=== PATIENT | female | born 1930 | race Caucasian/White ===

== ENCOUNTER 2017-03-11 15:04 | Inpatient (IN) | payer BC ==
[2017-03-11] MEDS ORDERED: ALBUTEROL SO4 0.083% IH SOL 2.5 MG/3 ML VIAL.NEB. NEB ONE ×3 (16:12→16:42)
--- NOTE | 2017-03-11 16:31 | PDOC ---
History of Present Illness - General History Source: Patient Exam Limitations: No Limitations - History of Present Illness Initial Comments: 03/11/17 16:41 The patient is a 86 year old female with a significant past medical history of esophageal CA (remission), CAD, HTN who presents to the ED, sent by PMD for admission, with complaints of cough and shortness of breath for 10 days. The patient reports a productive cough with yellow sputum that has not improved in symptoms. Patient reports taking azithromycin with no relief of present symptoms. Denies fevers or chills. Denies chest pain or palpitations. Denies dysuria or changes in urinary output. Denies any other symptoms. Social hx: The patient is a former smoker. PMD: Dr. Luna <Elissa Ralph - Last Filed: 03/11/17 18:05> - General History Source: Patient, Family Exam Limitations: No Limitations <Mejia Burt - Last Filed: 03/11/17 18:38> - General Chief Complaint: Shortness of Breath Stated Complaint: (PCP SENT) Time Seen by Provider: 03/11/17 16:04 Past History <Elissa Ralph - Last Filed: 03/11/17 18:05> - Past Medical History Cancer: Yes (esophagus, stomach) HTN: Yes Hypercholesterolemia: Yes - Surgical History Abdominal Surgery: Yes (stomach ulcer) - Psycho/Social/Smoking Cessation Hx Anxiety: No Suicidal Ideation: No Smoking History: Former smoker Have you smoked in the past 12 months: No Information on smoking cessation initiated: No Hx Alcohol Use: No Drug/Substance Use Hx: No Substance Use Type: None <Mejia Burt - Last Filed: 03/11/17 18:38> - Past Medical History Allergies/Adverse Reactions: Allergies Allergy/AdvReac Type Severity Reaction Status Date / Time codeine Allergy Verified 03/11/17 15:15 Home Medications: Ambulatory Orders Isosorbide Mononitrate [Imdur -] 30 mg PO DAILY 03/11/17 Omeprazole 40 mg PO DAILY 03/11/17 Ramipril [Altace] 5 mg PO DAILY 03/11/17 Simvastatin [Zocor -] 20 mg PO HS 03/11/17 Review of Systems - Review of Systems Able to Perform ROS?: Yes Comments:: 03/11/17 16:41 GENERAL/CONSTITUTIONAL: No fever or chills. No weakness. HEAD, EYES, EARS, NOSE AND THROAT: No change in vision. No ear pain or discharge. No sore throat. CARDIOVASCULAR: No chest pain or shortness of breath. RESPIRATORY: + cough, SOB. No wheezing, or hemoptysis. GASTROINTESTINAL: No nausea, vomiting, diarrhea or constipation. GENITOURINARY: No dysuria, frequency, or change in urination. MUSCULOSKELETAL: No joint or muscle swelling or pain. No neck or back pain. SKIN: No rash NEUROLOGIC: No headache, vertigo, loss of consciousness, or change in strength/ sensation. ENDOCRINE: No increased thirst. No abnormal weight change. HEMATOLOGIC/LYMPHATIC: No anemia, easy bleeding, or history of blood clots. ALLERGIC/IMMUNOLOGIC: No hives or skin allergy. All Other Systems: Reviewed and Negative <Elissa Ralph - Last Filed: 03/11/17 18:05> *Physical Exam - Vital Signs Last Vital Signs Temp Pulse Resp BP Pulse Ox 97.9 F 97 H 18 162/95 100 03/11/17 15:15 03/11/17 15:15 03/11/17 15:15 03/11/17 15:15 03/11/17 15:15 - Physical Exam Comments: 03/11/17 16:41 GENERAL: Awake, alert, and fully oriented, in no acute distress HEAD: No signs of trauma EYES: PERRLA, EOMI, sclera anicteric, conjunctiva clear ENT: Auricles normal inspection, hearing grossly normal, nares patent, oropharynx clear without exudates. Moist mucosa NECK: Normal ROM, supple, no lymphadenopathy, JVD, or masses LUNGS: + coughing frequently with diffuse expiratory wheezing. no crackles HEART: Regular rate and rhythm, normal S1 and S2, no murmurs, rubs or gallops ABDOMEN: Soft, nontender, normoactive bowel sounds. No guarding, no rebound. No masses EXTREMITIES: Normal range of motion, no edema. No clubbing or cyanosis. No cords, erythema, or tenderness NEUROLOGICAL: Normal speech SKIN: Warm, Dry, normal turgor, no rashes or lesions noted. <Elissa Ralph - Last Filed: 03/11/17 18:05> - Vital Signs Last Vital Signs Temp Pulse Resp BP Pulse Ox 97.9 F 97 H 18 162/95 100 03/11/17 15:15 03/11/17 15:15 03/11/17 15:15 03/11/17 15:15 03/11/17 15:15 <Mejia Burt - Last Filed: 03/11/17 18:38> Heart Score/ECG Review #1 ECG reviewed & interpreted by me at: 17:00 03/11/17 17:02 NSR 80, no std/gabrielle, normal axis, normal intervals, QTC 433 msec <Mejia Burt - Last Filed: 03/11/17 18:38> ED Treatment Course - LABORATORY CBC & Chemistry Diagram: 03/11/17 15:45 03/11/17 15:45 <Elissa Ralph - Last Filed: 03/11/17 18:05> - LABORATORY CBC & Chemistry Diagram: 03/11/17 15:45 03/11/17 15:45 - RADIOLOGY Radiology Studies Ordered: Category Date Time Status CHEST X-RAY PORTABLE* [RAD] Stat Radiology 03/11/17 16:11 Ordered <Mejia Burt - Last Filed: 03/11/17 18:38> Medical Decision Making - Medical Decision Making 03/11/17 18:[address] Fabian at 18:06 <Elissa Ralph - Last Filed: 03/11/17 18:05> - Medical Decision Making 03/11/17 16:29 A portion of this note was written by my scribe, under my supervision. Vital Signs Temp Pulse Resp BP Pulse Ox 97.9 F 97 H 18 162/95 100 03/11/17 15:15 03/11/17 15:15 03/11/17 15:15 03/11/17 15:15 03/11/17 15:15 86 year old female c/ hx of esophageal ca in remission, CAD, HTN, former smoker presents with cough and SOB x 10 days. The patient developed yellowish productive cough and has not improved in symptoms. Has been on azithromycin without improvement in symptoms. Pt had seen her PMD Dr. Luna who sent the patient to be admitted. Adult sepsis protocol initiated. R/o PNA, sepsis. Labs including cultures. Chest xray Admission. 03/11/17 18:11 CBC, BMP 03/11/17 15:45 03/11/17 15:45 CMP Sodium 138 mmol/L (136-145) 03/11/17 15:45 Potassium 4.0 mmol/L (3.5-5.1) 03/11/17 15:45 Chloride 100 mmol/L (98-107) 03/11/17 15:45 Carbon Dioxide 29 mmol/L (21-32) 03/11/17 15:45 Anion Gap 9 (8-16) 03/11/17 15:45 BUN 12 mg/dL (7-18) 03/11/17 15:45 Creatinine 0.7 mg/dL (0.55-1.02) 03/11/17 15:45 Creat Clearance w eGFR > 60 (>60) 03/11/17 15:45 Random Glucose 109 mg/dL (74-106) H 03/11/17 15:45 Lactic Acid 1.2 mmol/L (0.4-2.0) 03/11/17 15:45 Calcium 8.7 mg/dL (8.5-10.1) 03/11/17 15:45 Total Bilirubin 1.0 mg/dL (0.2-1.0) 03/11/17 15:45 AST 14 U/L (15-37) L 03/11/17 15:45 ALT 17 U/L (12-78) 03/11/17 15:45 Alkaline Phosphatase 105 U/L (45-117) 03/11/17 15:45 Creatine Kinase 87 IU/L (26-192) 03/11/17 15:45 Troponin I < 0.02 ng/ml (0.00-0.05) 03/11/17 15:45 B-Natriuretic Peptide 289.43 pg/ml (5-450) 03/11/17 15:45 Total Protein 7.2 g/dl (6.4-8.2) 03/11/17 15:45 Albumin 3.4 g/dl (3.4-5.0) 03/11/17 15:45 Chest xray reviewed, pending official radiology read. Hyperinflated with no obvious infiltrates. However, pt coughs uncontrollably. Will treat clinically as CAP. Ceftriaxone and azithromycin ordered. Case discussed with Dr. Flynn (hospitalist is covering Dr. Vann). Admit to med/surg admission. 03/11/17 18:[address] Luna. Agrees with my plan. Requests that I initiate 60 mg solumedrol q6h <Mejia Burt - Last Filed: 03/11/17 18:38> *DC/Admit/Observation/Transfer - Attestations Scribe Attestion: 03/11/17 16:42 Documentation prepared by Elissa Ralph, acting as medical staff specialist for Mejia Burt MD <Elissa Ralph - Last Filed: 03/11/17 18:05> - Discharge Dispostion Admit: Yes <Mejia Burt - Last Filed: 03/11/17 18:38> Diagnosis at time of Disposition: Pneumonia Qualifiers: Pneumonia type: due to unspecified organism Laterality: unspecified laterality Lung location: unspecified part of lung Qualified Code(s): J18.9 - Pneumonia, unspecified organism - Referrals Referrals: Barron Luna MD [Primary Care Provider] -
[2017-03-11 16:44] LABS: BASOPHIL 0.3 % (0-2.0); EOSINOPHIL 0.6 % (0-4.5); MCH 27.8 pg (25.7-33.7); MCHC 33.1 g/dl (32.0-36.0); MEAN CELL VOLUME 84.1 fl (80-96); MEAN PLT VOLUME 9.8 fl (7.5-11.1); NEUTROPHILS 76.5 % (42.8-82.8); PLATELET COUNT 264 K/MM3 (134-434); RDW 13.7 % (11.6-15.6); WHITE BLOOD COUNT 9.9 K/mm3 (4.0-10.0)
[2017-03-11 16:56] LABS: VENOUS PH 7.39 (7.32-7.42)
[2017-03-11 16:57] LABS: VENOUS BLOOD GAS HCO3 28.2 meq/L (19-25)
[2017-03-11 16:59] LABS: INR 1.19 (0.82-1.09); PROTHROMBIN TIME (PATIENT) 13.1 SEC (9.98-11.88)
[2017-03-11 17:01] LABS: ACTIVATED PTT 28.9 SECONDS (26.9-34.4)
[2017-03-11 17:09] LABS: ALBUMIN 3.4 g/dl (3.4-5.0); ANION GAP 9 (8-16); CALCIUM 8.7 mg/dL (8.5-10.1); CO2 29 mmol/L (21-32); CREATININE 0.7 mg/dL (0.55-1.02); GLUCOSE,RANDOM 109 mg/dL (74-106); SGOT/AST 14 U/L (15-37); SGPT/ALT 17 U/L (12-78)
[2017-03-11 17:14] LABS: ALK PHOS 105 U/L (45-117); CPK 87 IU/L (26-192); TOT PROT 7.2 g/dl (6.4-8.2); TROPONIN I < 0.02 ng/ml (0.00-0.05)
[2017-03-11 17:20] LABS: URINE APPEARANCE CLEAR; URINE BILIRUBIN 1+ (NEGATIVE); URINE BLOOD 3+ (NEGATIVE); URINE COLOR LT. YELLOW; URINE GLUCOSE (UA) NEGATIVE (NEGATIVE); URINE KETONE 1+ (NEGATIVE); URINE LEUK ESTERASE NEGATIVE (NEGATIVE); URINE NITRITE NEGATIVE (NEGATIVE); URINE PROTEIN TRACE (NEGATIVE); URINE UROBILINOGEN 0.2 mg/dL (0.2-1.0)
[2017-03-11] MEDS ORDERED: CEFTRIAXONE 1 GM in DEXTROSE 5%-WATER - 50 ML IVPB ONE (18:07)
[2017-03-11] MEDS ORDERED: AZITHROMYCIN IVPB 250 MG in DEXTROSE 5%-WATER - 250 ML IVPB ONE (18:07)
[2017-03-11] MEDS ORDERED: CEFTRIAXONE 50 ML ONE (18:20)
[2017-03-11 18:23] LABS: URINE BACTERIA FEW /hpf (NONE SEEN); URINE HYALINE CAST 1 /lpf; URINE MUCUS FEW; URINE RBC 21 /hpf (0-3); URINE WBC 5 /hpf (3-5)
[2017-03-11] MEDS ORDERED: methylPREDNISolone NA SUCC 40 MG/1 ML VIAL IVPB ONE (18:23)
[2017-03-11] MEDS ORDERED: methylPREDNISolone NA SUCC 125 MG/2 ML VIAL ONE (18:50)
--- NOTE | 2017-03-11 21:24 | HP ---
CHIEF COMPLAINT: cough PCP: [facility] HISTORY OF PRESENT ILLNESS: This is an 86 year old female with a past medical history of esophageal CA, CAD , HTN, glaucoma presented to the ED with cough and SOB x 10 days with productive yellow sputum. Was treated with po azithromycin x 3-4 days with no improvement. Pt also reports chest pain with inspiration. Denies abdominal pain , N/V/D. pt reports hot and cold sweats for the past week. ER course was notable for: (1) CXR with ? LLL infiltrate (2) tx with ceftriaxone and azithromycin IV (3) given solumedrol 60mg x 1 Recent Travel: pt denies PAST MEDICAL HISTORY: esophageal CA tx with chemo approx 10y ago HTN CAD glaucoma PAST SURGICAL HISTORY: surgery for stomach ulcer hysterectomy hemorrhoidectomy appendectomy Social History: Smoking: quit 20y ago, previous 1ppd smoker Alcohol: pt denies Drugs: pt denies Family History: mother age45, vaginal bleeding complications of "the change" father deased in his 70s, unknown brother brain aneurysm 6 other siblings all , unk ages and causes 1 sister alive with DM Allergies codeine Allergy (Verified 03/11/17 15:15) HOME MEDICATIONS: 3 Medication Instructions Recorded Isosorbide Mononitrate [Imdur -] 30 mg PO DAILY 03/11/17 Omeprazole 40 mg PO DAILY 03/11/17 Ramipril [Altace] 5 mg PO DAILY 03/11/17 Simvastatin [Zocor -] 20 mg PO HS 03/11/17 Travatan 1 drop OU HS REVIEW OF SYSTEMS CONSTITUTIONAL: Present: chills, diaphoresis Absent: fever, generalized weakness, malaise, loss of appetite, weight change HEENT: Absent: rhinorrhea, nasal congestion, throat pain, throat swelling, difficulty swallowing, mouth swelling, ear pain, eye pain, visual changes CARDIOVASCULAR: Present: chest pain Absent: syncope, palpitations, irregular heart rate, lightheadedness, peripheral edema RESPIRATORY: Present: cough, shortness of breath Absent: dyspnea with exertion, orthopnea, wheezing, stridor, hemoptysis GASTROINTESTINAL: Absent: abdominal pain, abdominal distension, nausea, vomiting, diarrhea, constipation, melena, hematochezia GENITOURINARY: Absent: dysuria, frequency, urgency, hesitancy, hematuria, flank pain, genital pain MUSCULOSKELETAL: Absent: myalgia, arthralgia, joint swelling, back pain, neck pain SKIN: Absent: rash, itching, pallor HEMATOLOGIC/IMMUNOLOGIC: Absent: easy bleeding, easy bruising, lymphadenopathy, frequent infections ENDOCRINE: Absent: unexplained weight gain, unexplained weight loss, heat intolerance, cold intolerance NEUROLOGIC: Absent: headache, focal weakness or paresthesias, dizziness, unsteady gait, seizure, mental status changes, bladder or bowel incontinence PSYCHIATRIC: Absent: anxiety, depression, suicidal or homicidal ideation, hallucinations. PHYSICAL EXAMINATION Vital Signs - 24 hr 3 03/11/17 03/11/17 03/11/17 15:15 18:05 20:00 Temperature 97.9 F 98.1 F 98.2 F Pulse Rate 97 H Pulse Rate [ 88 88 Apical] Respiratory 18 16 20 Rate Blood Pressure 162/95 Blood Pressure 118/61 156/64 [Right Arm] O2 Sat by Pulse 100 95 95 Oximetry (%) GENERAL: Awake, alert, and fully oriented, in no acute distress. HEAD: Normal with no signs of trauma. EYES: Pupils equal, round and reactive to light, extraocular movements intact, sclera anicteric, conjunctiva clear. No lid lag. EARS, NOSE, THROAT: Ears normal, nares patent, oropharynx clear without exudates. Moist mucous membranes. NECK: Normal range of motion, supple without lymphadenopathy, JVD, or masses. LUNGS: crackles LLL, diffuse expiratory wheezing and rhonchi all lung trevino, but worst LLL HEART: Regular rate and rhythm, normal S1 and S2 without murmur, rub or gallop. ABDOMEN: Soft, nontender, not distended, normoactive bowel sounds, no guarding, no rebound, no masses. No hepatomegaly or splenomegaly. MUSCULOSKELETAL: Normal range of motion at all joints. No bony deformities or tenderness. No CVA tenderness. UPPER EXTREMITIES: 2+ pulses, warm, well-perfused. No cyanosis. No clubbing. No peripheral edema. LOWER EXTREMITIES: 2+ pulses, warm, well-perfused. No calf tenderness. No peripheral edema. NEUROLOGICAL: Cranial nerves II-XII intact. Normal speech. Normal gait. PSYCHIATRIC: Cooperative. Good eye contact. Appropriate mood and affect. SKIN: Warm, dry, normal turgor, no rashes or lesions noted, normal capillary refill. Laboratory Results - last 24 hr 3 03/11/17 03/11/17 03/11/17 14:38 15:45 15:45 WBC 9.9 RBC 4.66 Hgb 13.0 Hct 39.2 MCV 84.1 MCH 27.8 MCHC 33.1 RDW 13.7 Plt Count 264 MPV 9.8 Neutrophils % 76.5 Lymphocytes % 14.5 Monocytes % 8.1 Eosinophils % 0.6 Basophils % 0.3 INR 1.19 H PTT (Actin FS) 28.9 VBG pH POC VBG pCO2 POC VBG pO2 Mixed VBG HCO3 Sodium Potassium Chloride Carbon Dioxide Anion Gap BUN Creatinine Creat Clearance w eGFR Random Glucose Lactic Acid Calcium Total Bilirubin AST ALT Alkaline Phosphatase Creatine Kinase Troponin I B-Natriuretic Peptide Total Protein Albumin Urine Color Lt. yellow Urine Appearance Clear Urine pH 6.0 Ur Specific Myra 1.020 Urine Protein Trace H Urine Glucose (UA) Negative Urine Ketones 1+ H Urine Blood 3+ H Urine Nitrite Negative Urine Bilirubin 1+ H Urine Urobilinogen 0.2 Ur Leukocyte Esterase Negative Urine RBC 21 Urine WBC 5 Ur Epithelial Cells Rare Urine Bacteria Few Hyaline Casts 1 Urine Mucus Few Blood Type Antibody Screen 3 03/11/17 03/11/17 03/11/17 15:45 15:45 15:45 WBC RBC Hgb Hct MCV MCH MCHC RDW Plt Count MPV Neutrophils % Lymphocytes % Monocytes % Eosinophils % Basophils % INR PTT (Actin FS) VBG pH POC VBG pCO2 POC VBG pO2 Mixed VBG HCO3 Sodium 138 Potassium 4.0 Chloride 100 Carbon Dioxide 29 Anion Gap 9 BUN 12 Creatinine 0.7 Creat Clearance w eGFR > 60 Random Glucose 109 H Lactic Acid 1.2 Calcium 8.7 Total Bilirubin 1.0 AST 14 L ALT 17 Alkaline Phosphatase 105 Creatine Kinase 87 Troponin I < 0.02 B-Natriuretic Peptide Total Protein 7.2 Albumin 3.4 Urine Color Urine Appearance Urine pH Ur Specific Myra Urine Protein Urine Glucose (UA) Urine Ketones Urine Blood Urine Nitrite Urine Bilirubin Urine Urobilinogen Ur Leukocyte Esterase Urine RBC Urine WBC Ur Epithelial Cells Urine Bacteria Hyaline Casts Urine Mucus Blood Type A POSITIVE Antibody Screen Negative 3 03/11/17 03/11/17 15:45 16:50 WBC RBC Hgb Hct MCV MCH MCHC RDW Plt Count MPV Neutrophils % Lymphocytes % Monocytes % Eosinophils % Basophils % INR PTT (Actin FS) VBG pH 7.39 POC VBG pCO2 48.0 POC VBG pO2 38.7 Mixed VBG HCO3 28.2 H Sodium Potassium Chloride Carbon Dioxide Anion Gap BUN Creatinine Creat Clearance w eGFR Random Glucose Lactic Acid Calcium Total Bilirubin AST ALT Alkaline Phosphatase Creatine Kinase Troponin I B-Natriuretic Peptide 289.43 Total Protein Albumin Urine Color Urine Appearance Urine pH Ur Specific Myra Urine Protein Urine Glucose (UA) Urine Ketones Urine Blood Urine Nitrite Urine Bilirubin Urine Urobilinogen Ur Leukocyte Esterase Urine RBC Urine WBC Ur Epithelial Cells Urine Bacteria Hyaline Casts Urine Mucus Blood Type Antibody Screen CXR- possible LLL infiltrate with haziness ECG-NSR, rate 80, QTC 433, no acute ST/T wave changes ASSESSMENT/PLAN: 86yF with PMH HTN, CAD, esophageal CA, glaucoma presented with cough, SOB x 10 days. She is being admitted for furthr treatment and evaluation. Community Acquired Pneumonia - ceftriaxone and azithromycin IVPB daily - solumedrol 40mg Q6h for wheezing - duoneb QID for wheezing with albuterol q4h prn - chest pain likely due to same, troponin negative HTN/CAD - cont home meds, home zocor changed to formulary lipitor GERD/h/o PUD - home omeprazole changed to formulary protonix Glaucoma - home travatan changed to xalatan DVT PPX - cont heparin 5000u SC BID FEN - defer IVF, pt tolerating po - BMP in AM - low sodium diet as tolerated Dispo: Pt currently requires inpatient management of her emergent condition. Visit type - Emergency Visit Emergency Visit: Yes ED Registration Date: 03/11/17 Care time: The patient presented to the Emergency Department on the above date and was hospitalized for further evaluation of their emergent condition. - New Patient This patient is new to me today: Yes Date on this admission: 03/12/17 - Critical Care Critical Care patient: No
[2017-03-11] MEDS ORDERED: ALBUTEROL SO4 0.083% IH SOL 2.5 MG/3 ML VIAL.NEB. NEB PRN (21:39)
[2017-03-11] MEDS: ATORVASTATIN CA 10 MG TABLET (FP) PO SCH (22:10)
[2017-03-11] MEDS: HEPARIN NA (PORCINE) 5,000 UNITS/ML 1ML VIAL SQ SCH (22:10)
[2017-03-11] MEDS: LATANOPROST 0.005% OPHTH SOLN 2.5ML BOTTLE OU SCH (22:11)
[2017-03-11] MEDS: ALBUTEROL SO4 2.5/IPRATROPIUM 0.5 INH SOL 3 ML VIAL.NEB. NEB SCH (23:21)
[2017-03-11 23:28] VITALS: BMI 25.2
[2017-03-12] MEDS: methylPREDNISolone NA SUCC 40 MG/1 ML VIAL IVPB SCH ×4 (02:16→20:28)
[2017-03-12] MEDS: ALBUTEROL SO4 2.5/IPRATROPIUM 0.5 INH SOL 3 ML VIAL.NEB. NEB SCH ×4 (05:42→23:50)
[2017-03-12 08:19] LABS: BASOPHIL 0.1 % (0-2.0); MCH 27.6 pg (25.7-33.7); MCHC 32.9 g/dl (32.0-36.0); MEAN CELL VOLUME 83.8 fl (80-96); MEAN PLT VOLUME 9.5 fl (7.5-11.1); PLATELET COUNT 240 K/MM3 (134-434); RDW 13.7 % (11.6-15.6); WHITE BLOOD COUNT 6.1 K/mm3 (4.0-10.0)
[2017-03-12] MEDS ORDERED: DEXTROSE 5%-WATER - 50 ML IVPB ONE (09:08)
[2017-03-12] MEDS ORDERED: cefTRIAXone SODIUM 1 GM VIAL ONE (09:08)
[2017-03-12] MEDS ORDERED: PT OWN MED DRAWER 7, Y5N ONE ×2 (09:08→21:13)
[2017-03-12] MEDS: RAMIPRIL 5 MG CAPSULE (FP) PO SCH (09:14)
[2017-03-12] MEDS: CEFTRIAXONE 1 GM in DEXTROSE 5%-WATER - 50 ML IVPB SCH (09:15)
[2017-03-12] MEDS: ISOSORBIDE MONONITRATE 30 MG TAB.SR.24H (FP) PO SCH (09:15)
[2017-03-12] MEDS: PANTOPRAZOLE 40 MG TABLET (FP) PO SCH (09:15)
[2017-03-12] MEDS: AZITHROMYCIN IVPB 500 MG/250 ML D5W PRE-DOCKED IVPB SCH (09:17)
[2017-03-12] MEDS: HEPARIN NA (PORCINE) 5,000 UNITS/ML 1ML VIAL SQ SCH ×2 (09:18→21:07)
[2017-03-12] MEDS ORDERED: AZITHROMYCIN IVPB 500 MG in DEXTROSE 5%-WATER - 250 ML IVPB SCH (10:00)
--- NOTE | 2017-03-12 10:24 | EKG ---
Test Reason : Blood Pressure : / mmHG Vent. Rate : 080 BPM Atrial Rate : 080 BPM P-R Int : 184 ms QRS Dur : 088 ms QT Int : 376 ms P-R-T Axes : 087 029 057 degrees QTc Int : 433 ms NORMAL SINUS RHYTHM NORMAL ECG NO PREVIOUS ECGS AVAILABLE Confirmed by NOLBERTO MONTGOMERY MD ([id number]) on 03/12/2017 10:24:35 AM Referred By: Confirmed By:NOLBERTO MONTGOMERY MD
[2017-03-12 11:38] LABS: ANION GAP 9 (8-16); CALCIUM 9.2 mg/dL (8.5-10.1); CO2 29 mmol/L (21-32); CREATININE 0.6 mg/dL (0.55-1.02); GLUCOSE,RANDOM 186 mg/dL (74-106); MAGNESIUM 2.2 mg/dL (1.8-2.4); PHOSPHOROUS 2.9 mg/dL (2.5-4.9)
--- NOTE | 2017-03-12 13:55 | PN ---
Progress Note, Physician Chief Complaint: Ms Farr says she is feeling better today. She still has coughing (non- productive) and shortness of breath but it is improved. No cp or n/v. - Current Medication List Current Medications: Active Medications Albuterol Sulfate (Ventolin 0.083% Nebulizer Soln -) 1 amp NEB Q4H PRN PRN Reason: SHORT OF BREATH/WHEEZING Albuterol/Ipratropium (Duoneb -) 1 amp NEB QIDR [facility] Last Admin: 03/12/17 11:51 Dose: 1 amp Atorvastatin Calcium (Lipitor -) 10 mg PO HS [facility] Last Admin: 03/11/17 22:10 Dose: 10 mg Azithromycin (Zithromax 500mg Ivpb (Pre-Docked)) 500 mg IVPB DAILY [facility] Last Admin: 03/12/17 09:17 Dose: 500 mg Heparin Sodium (Porcine) (Heparin -) 5,000 unit SQ BID [facility] Last Admin: 03/12/17 09:18 Dose: 5,000 unit Ceftriaxone Sodium 1 gm/ (Dextrose) 50 mls @ 100 mls/hr IVPB DAILY [facility] Last Admin: 03/12/17 09:15 Dose: 100 mls/hr Isosorbide Mononitrate (Imdur -) 30 mg PO DAILY [facility] Last Admin: 03/12/17 09:15 Dose: 30 mg Latanoprost (Xalatan 0.005% Eye Drops -) 1 drop OU HS [facility] Last Admin: 03/11/17 22:11 Dose: 1 drop Methylprednisolone Sodium Succinate (Solu-Medrol -) 40 mg IVPB Q6H-IV [facility] Last Admin: 03/12/17 08:39 Dose: 40 mg Pantoprazole Sodium (Protonix -) 40 mg PO DAILY [facility] Last Admin: 03/12/17 09:15 Dose: 40 mg Ramipril (Altace -) 5 mg PO DAILY [facility] Last Admin: 03/12/17 09:14 Dose: 5 mg - Objective Vital Signs: Vital Signs Temperature 35.9 C L 03/12/17 08:00 Pulse Rate 82 03/12/17 11:15 Respiratory Rate 22 03/12/17 08:00 Blood Pressure 146/74 03/12/17 11:15 O2 Sat by Pulse Oximetry (%) 96 03/12/17 09:00 Constitutional: Yes: Well Nourished, No Distress, Calm Cardiovascular: Yes: Regular Rate and Rhythm. No: Gallop, Murmur, Rub Respiratory: Yes: Regular, CTA Bilaterally. No: Rales, Rhonchi, Wheezes Gastrointestinal: Yes: Normal Bowel Sounds, Soft. No: Distention, Tenderness Extremities: Yes: WNL Edema: No Labs: CBC, BMP 03/12/17 07:51 03/12/17 07:51 INR, PTT INR 1.19 (0.82-1.09) H 03/11/17 15:45 Problem List - Problems (1) Pneumonia Assessment/Plan: -patient feeling improved -continue rocephin and zithromax -monitor Code(s): J18.9 - PNEUMONIA, UNSPECIFIED ORGANISM Qualifiers: Pneumonia type: due to unspecified organism Laterality: unspecified laterality Lung location: unspecified part of lung Qualified Code(s): J18.9 - Pneumonia, unspecified organism (2) COPD (chronic obstructive pulmonary disease) Assessment/Plan: -secondary to pneumonia -continue steroids currently -may be able to decrease or stop tomorrow -continue bronchodilators Code(s): J44.9 - CHRONIC OBSTRUCTIVE PULMONARY DISEASE, UNSPECIFIED Qualifiers : COPD type: COPD with acute exacerbation Qualified Code(s): J44.1 - Chronic obstructive pulmonary disease with (acute) exacerbation (3) HTN (hypertension) Assessment/Plan: -continue altace -steroids may cause increase in blood pressure Code(s): I10 - ESSENTIAL (PRIMARY) HYPERTENSION (4) HLD (hyperlipidemia) Assessment/Plan: -continue statin Code(s): E78.5 - HYPERLIPIDEMIA, UNSPECIFIED (5) CAD (coronary artery disease) Assessment/Plan: -quiescent -continue home regimen Code(s): I25.10 - ATHSCL HEART DISEASE OF [place] CORONARY ARTERY W/O ANG PCTRS
[2017-03-12] MEDS: ATORVASTATIN CA 10 MG TABLET (FP) PO SCH (21:07)
[2017-03-12] MEDS: LATANOPROST 0.005% OPHTH SOLN 2.5ML BOTTLE OU SCH (21:18)
[2017-03-13] MEDS: methylPREDNISolone NA SUCC 40 MG/1 ML VIAL IVPB SCH ×4 (02:19→21:27)
[2017-03-13] MEDS: ALBUTEROL SO4 2.5/IPRATROPIUM 0.5 INH SOL 3 ML VIAL.NEB. NEB SCH ×4 (05:59→23:10)
[2017-03-13 07:29] LABS: MCHC 33.1 g/dl (32.0-36.0); MEAN CELL VOLUME 84.4 fl (80-96); MEAN PLT VOLUME 9.1 fl (7.5-11.1); PLATELET COUNT 317 K/MM3 (134-434); RDW 13.4 % (11.6-15.6)
[2017-03-13 07:50] LABS: ANION GAP 9 (8-16); CALCIUM 9.3 mg/dL (8.5-10.1); CO2 30 mmol/L (21-32); CREATININE 0.6 mg/dL (0.55-1.02); GLUCOSE,RANDOM 159 mg/dL (74-106); MAGNESIUM 2.5 mg/dL (1.8-2.4); PHOSPHOROUS 3.5 mg/dL (2.5-4.9)
[2017-03-13] MEDS ORDERED: PT OWN MED DRAWER 7, Y5N ONE ×3 (10:50→21:31)
[2017-03-13] MEDS ORDERED: cefTRIAXone SODIUM 1 GM VIAL ONE (10:51)
[2017-03-13] MEDS ORDERED: DEXTROSE 5%-WATER - 50 ML IVPB ONE (10:51)
[2017-03-13] MEDS: RAMIPRIL 5 MG CAPSULE (FP) PO SCH (10:53)
[2017-03-13] MEDS: PANTOPRAZOLE 40 MG TABLET (FP) PO SCH (10:53)
[2017-03-13] MEDS: ISOSORBIDE MONONITRATE 30 MG TAB.SR.24H (FP) PO SCH (10:53)
[2017-03-13] MEDS: CEFTRIAXONE 1 GM in DEXTROSE 5%-WATER - 50 ML IVPB SCH (10:54)
[2017-03-13] MEDS: AZITHROMYCIN IVPB 500 MG/250 ML D5W PRE-DOCKED IVPB SCH (10:55)
[2017-03-13] MEDS: HEPARIN NA (PORCINE) 5,000 UNITS/ML 1ML VIAL SQ SCH ×2 (10:56→21:27)
[2017-03-13 12:47] LABS: TOTAL CELLS COUNTED 100
--- NOTE | 2017-03-13 13:20 | PN ---
Physical Exam: SUBJECTIVE: Patient seen and examined with no new overnight events. OBJECTIVE: Vital Signs Period Temp Pulse Resp BP Sys/Denny Pulse Ox Last 24 Hr 97.6 F-97.9 F 82-97 20-20 133-139/61-71 96-98 GENERAL: The patient is awake, in no acute distress. HEAD: Normal with no signs of trauma. LUNGS: Breath sounds equal, clear bilaterally HEART: Regular rate and rhythm, S1, S2 without murmur, rub or gallop. ABDOMEN: Soft, nontender, nondistended, normoactive bowel sounds, EXTREMITIES: 2+ pulses, warm, well-perfused, no edema. NEUROLOGICAL: Cranial nerves II through XII grossly intact. SKIN: Warm, dry, normal turgor, no rashes or lesions noted Laboratory Results - last 24 hr 03/13/17 03/13/17 06:30 06:30 WBC 19.0 H D RBC 4.54 Hgb 12.7 Hct 38.3 MCV 84.4 MCH 28.0 MCHC 33.1 RDW 13.4 Plt Count 317 D MPV 9.1 Neutrophils % Y Neutrophils % (Manual) 85 H Band Neuts % (Manual) 12 H Lymphocytes % Y Lymphocytes % (Manual) 2 L Monocytes % (Manual) 1 L Sodium 140 Potassium 4.9 D Chloride 101 Carbon Dioxide 30 Anion Gap 9 BUN 18 D Creatinine 0.6 Random Glucose 159 H Calcium 9.3 Phosphorus 3.5 D Magnesium 2.5 H Active Medications Generic Name Dose Route Start Last Admin Trade Name Freq PRN Reason Stop Dose Admin Albuterol Sulfate 1 amp 03/11/17 21:39 Ventolin 0.083% Nebulizer Soln - NEB Q4H PRN SHORT OF BREATH/WHEEZING Albuterol/Ipratropium 1 amp 03/12/17 00:00 03/13/17 11:45 Duoneb - NEB 1 amp QIDR AGUEDA Administration Atorvastatin Calcium 10 mg 03/11/17 22:00 03/12/17 21:07 Lipitor - PO 10 mg HS AGUEDA Administration Azithromycin 500 mg 03/12/17 10:00 03/13/17 10:55 Zithromax 500mg Ivpb (Pre-Docked) IVPB 500 mg DAILY AGUEDA Administration Heparin Sodium (Porcine) 5,000 unit 03/11/17 22:00 03/13/17 10:56 Heparin - SQ 5,000 unit BID AGUEDA Administration Ceftriaxone Sodium 1 gm/ 50 mls @ 100 mls/hr 03/12/17 10:00 03/13/17 10:54 Dextrose IVPB 100 mls/hr DAILY AGUEDA Administration Isosorbide Mononitrate 30 mg 03/12/17 10:00 03/13/17 10:53 Imdur - PO 30 mg DAILY AGUEDA Administration Latanoprost 1 drop 03/11/17 22:00 03/12/17 21:18 Xalatan 0.005% Eye Drops - OU 1 drop HS AGUEDA Administration Methylprednisolone Sodium Succinate 40 mg 03/12/17 03:00 03/13/17 09:10 Solu-Medrol - IVPB 40 mg Q6H-IV AGUEDA Administration Pantoprazole Sodium 40 mg 03/12/17 10:00 03/13/17 10:53 Protonix - PO 40 mg DAILY AGUEDA Administration Ramipril 5 mg 03/12/17 10:00 03/13/17 10:53 Altace - PO 5 mg DAILY AGUEDA Administration ASSESSMENT/PLAN: This 86 year female with presentation of PNA with showing improvement. Problem List - Problems (1) Pneumonia Assessment/Plan: -patient feeling improved -continue rocephin and zithromax -monitor Code(s): J18.9 - PNEUMONIA, UNSPECIFIED ORGANISM Qualifiers: Pneumonia type: due to unspecified organism Laterality: unspecified laterality Lung location: unspecified part of lung Qualified Code(s): J18.9 - Pneumonia, unspecified organism (2) COPD (chronic obstructive pulmonary disease) Assessment/Plan: -secondary to pneumonia -continue steroids currently -continue bronchodilators -appreciate Pulmonary consult Code(s): J44.9 - CHRONIC OBSTRUCTIVE PULMONARY DISEASE, UNSPECIFIED Qualifiers : COPD type: COPD with acute exacerbation Qualified Code(s): J44.1 - Chronic obstructive pulmonary disease with (acute) exacerbation (3) HTN (hypertension) Assessment/Plan: -continue altace -steroids may cause increase in blood pressure Code(s): I10 - ESSENTIAL (PRIMARY) HYPERTENSION (4) HLD (hyperlipidemia) Assessment/Plan: -continue statin Code(s): E78.5 - HYPERLIPIDEMIA, UNSPECIFIED (5) CAD (coronary artery disease) Assessment/Plan: -quiescent -continue home regimen Code(s): I25.10 - ATHSCL HEART DISEASE OF [place] CORONARY ARTERY W/O ANG PCTRS Problem List - Problems (1) COPD (chronic obstructive pulmonary disease) Code(s): J44.9 - CHRONIC OBSTRUCTIVE PULMONARY DISEASE, UNSPECIFIED Qualifiers : COPD type: COPD with acute exacerbation Qualified Code(s): J44.1 - Chronic obstructive pulmonary disease with (acute) exacerbation (2) HTN (hypertension) Code(s): I10 - ESSENTIAL (PRIMARY) HYPERTENSION Visit type - Emergency Visit Emergency Visit: No - New Patient This patient is new to me today: Yes Date on this admission: 03/13/17 - Critical Care Critical Care patient: No - Discharge Referral Referred to [facility] No
[2017-03-13 19:11] LABS: TOTAL CELLS COUNTED 100
[2017-03-13] MEDS: ATORVASTATIN CA 10 MG TABLET (FP) PO SCH (21:27)
[2017-03-13] MEDS: LATANOPROST 0.005% OPHTH SOLN 2.5ML BOTTLE OU SCH (21:31)
[2017-03-14] MEDS: methylPREDNISolone NA SUCC 40 MG/1 ML VIAL IVPB SCH ×3 (02:36→15:28)
[2017-03-14] MEDS: ALBUTEROL SO4 2.5/IPRATROPIUM 0.5 INH SOL 3 ML VIAL.NEB. NEB SCH ×3 (06:00→17:05)
[2017-03-14 07:41] LABS: MCH 27.7 pg (25.7-33.7); MCHC 32.9 g/dl (32.0-36.0); MEAN CELL VOLUME 84.2 fl (80-96); MEAN PLT VOLUME 9.2 fl (7.5-11.1); NEUTROPHILS 94.3 % (42.8-82.8); PLATELET COUNT 331 K/MM3 (134-434); RDW 13.7 % (11.6-15.6)
[2017-03-14 08:15] LABS: ALBUMIN 3.1 g/dl (3.4-5.0); ANION GAP 10 (8-16); CALCIUM 9.1 mg/dL (8.5-10.1); CO2 30 mmol/L (21-32); GLUCOSE,RANDOM 167 mg/dL (74-106)
[2017-03-14 08:20] LABS: ALK PHOS 93 U/L (45-117); BILIRUBIN,TOTAL 0.6 mg/dL (0.2-1.0); CREATININE 0.7 mg/dL (0.55-1.02); SGOT/AST 15 U/L (15-37); SGPT/ALT 21 U/L (12-78); TOT PROT 6.8 g/dl (6.4-8.2)
[2017-03-14] MEDS ORDERED: cefTRIAXone SODIUM 1 GM VIAL ONE (10:50)
[2017-03-14] MEDS ORDERED: DEXTROSE 5%-WATER - 50 ML IVPB ONE (10:51)
[2017-03-14] MEDS: PANTOPRAZOLE 40 MG TABLET (FP) PO SCH (11:06)
[2017-03-14] MEDS: ISOSORBIDE MONONITRATE 30 MG TAB.SR.24H (FP) PO SCH (11:06)
[2017-03-14] MEDS: RAMIPRIL 5 MG CAPSULE (FP) PO SCH (11:06)
[2017-03-14] MEDS: HEPARIN NA (PORCINE) 5,000 UNITS/ML 1ML VIAL SQ SCH ×2 (11:06→21:33)
[2017-03-14] MEDS: CEFTRIAXONE 1 GM in DEXTROSE 5%-WATER - 50 ML IVPB SCH (11:06)
[2017-03-14] MEDS: AZITHROMYCIN IVPB 500 MG/250 ML D5W PRE-DOCKED IVPB SCH (12:13)
--- NOTE | 2017-03-14 17:01 | PN ---
Physical Exam: SUBJECTIVE: Patient seen and examined oob ambulating around room. States breathing is better. OBJECTIVE: Vital Signs Period Temp Pulse Resp BP Sys/Denny Pulse Ox Last 24 Hr 97.4 F-98.0 F 72-83 13-20 111-153/57-82 96-97 GENERAL: The patient is awake, alert, and fully oriented, in no acute distress. HEAD: Normal with no signs of trauma. EYES: PERRL, extraocular movements intact, sclera anicteric, conjunctiva clear. No ptosis. LUNGS: Bibasilar rales; no wheezes, no rho;nchi, no accessory muscle use. HEART: Regular rate and rhythm, S1, S2 without murmur, rub or gallop. ABDOMEN: Soft, nontender, nondistended, normoactive bowel sounds, no guarding, no rebound EXTREMITIES: 2+ pulses, warm, well-perfused, no edema. NEUROLOGICAL: Cranial nerves II through XII grossly intact. Normal speech, steady gait Laboratory Results - last 24 hr 03/13/17 03/14/17 03/14/17 06:30 06:20 06:20 WBC 19.0 H D 17.0 H RBC 4.54 4.61 Hgb 12.7 12.8 Hct 38.3 38.8 MCV 84.4 84.2 MCH 28.0 27.7 MCHC 33.1 32.9 RDW 13.4 13.7 Plt Count 317 D 331 MPV 9.1 9.2 Neutrophils % 94.3 H Neutrophils % (Manual) 85 H Band Neuts % (Manual) 12 H Lymphocytes % 3.9 L D Lymphocytes % (Manual) 2 L Monocytes % 1.8 L Monocytes % (Manual) 1 L Eosinophils % 0.0 Basophils % 0.0 Sodium 140 Potassium 4.6 Chloride 100 Carbon Dioxide 30 Anion Gap 10 BUN 22 H D Creatinine 0.7 Creat Clearance w eGFR > 60 Random Glucose 167 H Calcium 9.1 Total Bilirubin 0.6 D AST 15 ALT 21 D Alkaline Phosphatase 93 Total Protein 6.8 Albumin 3.1 L Active Medications Generic Name Dose Route Start Last Admin Trade Name Freq PRN Reason Stop Dose Admin Albuterol Sulfate 1 amp 03/11/17 21:39 Ventolin 0.083% Nebulizer Soln - NEB Q4H PRN SHORT OF BREATH/WHEEZING Albuterol/Ipratropium 1 amp 03/12/17 00:00 03/14/17 11:30 Duoneb - NEB 1 amp QIDR AGUEDA Administration Atorvastatin Calcium 10 mg 03/11/17 22:00 03/13/17 21:27 Lipitor - PO 10 mg HS AGUEDA Administration Azithromycin 500 mg 03/12/17 10:00 03/14/17 12:13 Zithromax 500mg Ivpb (Pre-Docked) IVPB 500 mg DAILY AGUEDA Administration Heparin Sodium (Porcine) 5,000 unit 03/11/17 22:00 03/14/17 11:06 Heparin - SQ 5,000 unit BID AGUEDA Administration Ceftriaxone Sodium 1 gm/ 50 mls @ 100 mls/hr 03/12/17 10:00 03/14/17 11:06 Dextrose IVPB 100 mls/hr DAILY AGUEDA Administration Isosorbide Mononitrate 30 mg 03/12/17 10:00 03/14/17 11:06 Imdur - PO 30 mg DAILY AGUEDA Administration Latanoprost 1 drop 03/11/17 22:00 03/13/17 21:31 Xalatan 0.005% Eye Drops - OU 1 drop HS AGUEDA Administration Methylprednisolone Sodium Succinate 40 mg 03/12/17 03:00 03/14/17 15:28 Solu-Medrol - IVPB 40 mg Q6H-IV AGUEDA Administration Pantoprazole Sodium 40 mg 03/12/17 10:00 03/14/17 11:06 Protonix - PO 40 mg DAILY AGUEDA Administration Ramipril 5 mg 03/12/17 10:00 03/14/17 11:06 Altace - PO 5 mg DAILY AGUEDA Administration ASSESSMENT/PLAN 86 year-old female with a PMH of HTN, CAD, esophageal cancer (chemo x 10 years) , PUD, and glaucoma. Admitted for pneumonia. Community acquired pneumonia COPD, chronic --sharp rise in WBC over past 24 hours --remains afebrile --panculture --continue azithro (day #3) and ceftriaxone (day #3) --start tapering IV steroids - duonebs Hypertension --BP controlled --continue Ramipril CAD --continue Ramipril, Imdur, Lipitor PUD --continue protonix Glaucoma - home travatan changed to xalatan Esophageal cancer --no acute issues DVT PPX: cont heparin 5000u SC BID Visit type - Emergency Visit Emergency Visit: Yes ED Registration Date: 03/11/17 Care time: The patient presented to the Emergency Department on the above date and was hospitalized for further evaluation of their emergent condition. - New Patient This patient is new to me today: Yes Date on this admission: 03/14/17 - Critical Care Critical Care patient: No
[2017-03-14] MEDS: ATORVASTATIN CA 10 MG TABLET (FP) PO SCH (21:33)
[2017-03-14] MEDS: LATANOPROST 0.005% OPHTH SOLN 2.5ML BOTTLE OU SCH (21:35)
[2017-03-15] MEDS: ALBUTEROL SO4 2.5/IPRATROPIUM 0.5 INH SOL 3 ML VIAL.NEB. NEB SCH ×4 (06:35→17:05)
[2017-03-15] MEDS ORDERED: INSULIN (NOVOLOG) ASPART 100 UNITS/ML 10ML VIAL ONE (06:55)
[2017-03-15 08:25] LABS: BASOPHIL 0.1 % (0-2.0); MCH 27.7 pg (25.7-33.7); MCHC 32.9 g/dl (32.0-36.0); MEAN CELL VOLUME 84.3 fl (80-96); MEAN PLT VOLUME 9.1 fl (7.5-11.1); NEUTROPHILS 82.9 % (42.8-82.8); PLATELET COUNT 303 K/MM3 (134-434); RDW 13.5 % (11.6-15.6); WHITE BLOOD COUNT 12.9 K/mm3 (4.0-10.0)
[2017-03-15 08:56] LABS: ALBUMIN 3.1 g/dl (3.4-5.0); ANION GAP 7 (8-16); BILIRUBIN,TOTAL 0.3 mg/dL (0.2-1.0); CALCIUM 8.8 mg/dL (8.5-10.1); CO2 33 mmol/L (21-32); CREATININE 0.7 mg/dL (0.55-1.02); GLUCOSE,RANDOM 109 mg/dL (74-106); MAGNESIUM 2.4 mg/dL (1.8-2.4); PHOSPHOROUS 2.8 mg/dL (2.5-4.9); SGOT/AST 14 U/L (15-37); SGPT/ALT 22 U/L (12-78); TOT PROT 6.2 g/dl (6.4-8.2)
[2017-03-15 08:57] LABS: ALK PHOS 84 U/L (45-117)
[2017-03-15] MEDS ORDERED: cefTRIAXone SODIUM 1 GM VIAL ONE (10:27)
[2017-03-15] MEDS ORDERED: DEXTROSE 5%-WATER - 50 ML IVPB ONE (10:28)
[2017-03-15] MEDS: RAMIPRIL 5 MG CAPSULE (FP) PO SCH (10:31)
[2017-03-15] MEDS: PANTOPRAZOLE 40 MG TABLET (FP) PO SCH (10:31)
[2017-03-15] MEDS: HEPARIN NA (PORCINE) 5,000 UNITS/ML 1ML VIAL SQ SCH ×2 (10:31→21:13)
[2017-03-15] MEDS: CEFTRIAXONE 1 GM in DEXTROSE 5%-WATER - 50 ML IVPB SCH (10:31)
[2017-03-15] MEDS: ISOSORBIDE MONONITRATE 30 MG TAB.SR.24H (FP) PO SCH (10:31)
[2017-03-15] MEDS: methylPREDNISolone NA SUCC 40 MG/1 ML VIAL IVPB SCH ×2 (10:31→21:13)
[2017-03-15] MEDS: NYSTATIN 500,000 UNITS/5 ML SUSPENSION PO SCH ×2 (11:49→18:19)
[2017-03-15] MEDS: AZITHROMYCIN IVPB 500 MG/250 ML D5W PRE-DOCKED IVPB SCH (11:49)
--- NOTE | 2017-03-15 13:00 | PN ---
Progress Note, Physician Chief Complaint: Ms Farr says she is feeling much better. SOB resolved. No cp or n/v. - Current Medication List Current Medications: Active Medications Albuterol Sulfate (Ventolin 0.083% Nebulizer Soln -) 1 amp NEB Q4H PRN PRN Reason: SHORT OF BREATH/WHEEZING Albuterol/Ipratropium (Duoneb -) 1 amp NEB QIDR [facility] Last Admin: 03/15/17 11:15 Dose: 1 amp Atorvastatin Calcium (Lipitor -) 10 mg PO HS [facility] Last Admin: 03/14/17 21:33 Dose: 10 mg Azithromycin (Zithromax 500mg Ivpb (Pre-Docked)) 500 mg IVPB DAILY [facility] Last Admin: 03/15/17 11:49 Dose: 500 mg Heparin Sodium (Porcine) (Heparin -) 5,000 unit SQ BID [facility] Last Admin: 03/15/17 10:31 Dose: 5,000 unit Ceftriaxone Sodium 1 gm/ (Dextrose) 50 mls @ 100 mls/hr IVPB DAILY [facility] Last Admin: 03/15/17 10:31 Dose: 100 mls/hr Isosorbide Mononitrate (Imdur -) 30 mg PO DAILY [facility] Last Admin: 03/15/17 10:31 Dose: 30 mg Latanoprost (Xalatan 0.005% Eye Drops -) 1 drop OU HS [facility] Last Admin: 03/14/17 21:35 Dose: 1 drop Methylprednisolone Sodium Succinate (Solu-Medrol -) 40 mg IVPB BID [facility] Last Admin: 03/15/17 10:31 Dose: 40 mg Nystatin (Nystatin Oral Suspension -) 500,000 units PO Q6HPO [facility] Last Admin: 03/15/17 11:49 Dose: 500,000 units Pantoprazole Sodium (Protonix -) 40 mg PO DAILY [facility] Last Admin: 03/15/17 10:31 Dose: 40 mg Ramipril (Altace -) 5 mg PO DAILY [facility] Last Admin: 03/15/17 10:31 Dose: 5 mg - Objective Vital Signs: Vital Signs Temperature 36.1 C L 03/15/17 10:30 Pulse Rate 68 03/15/17 11:25 Respiratory Rate 20 03/15/17 10:30 Blood Pressure 189/71 03/15/17 10:30 O2 Sat by Pulse Oximetry (%) 95 03/15/17 11:25 Constitutional: Yes: Well Nourished, No Distress, Calm Cardiovascular: Yes: Regular Rate and Rhythm. No: Gallop, Murmur, Rub Respiratory: Yes: Regular, CTA Bilaterally. No: Rales, Rhonchi, Wheezes Gastrointestinal: Yes: Normal Bowel Sounds, Soft. No: Distention, Tenderness Extremities: Yes: WNL Edema: No Labs: CBC, BMP 03/15/17 06:00 03/15/17 06:00 INR, PTT INR 1.19 (0.82-1.09) H 03/11/17 15:45 Problem List - Problems (1) Pneumonia Code(s): J18.9 - PNEUMONIA, UNSPECIFIED ORGANISM Qualifiers: Pneumonia type: due to unspecified organism Laterality: unspecified laterality Lung location: unspecified part of lung Qualified Code(s): J18.9 - Pneumonia, unspecified organism (2) COPD (chronic obstructive pulmonary disease) Code(s): J44.9 - CHRONIC OBSTRUCTIVE PULMONARY DISEASE, UNSPECIFIED Qualifiers : COPD type: COPD with acute exacerbation Qualified Code(s): J44.1 - Chronic obstructive pulmonary disease with (acute) exacerbation (3) HTN (hypertension) Code(s): I10 - ESSENTIAL (PRIMARY) HYPERTENSION (4) HLD (hyperlipidemia) Code(s): E78.5 - HYPERLIPIDEMIA, UNSPECIFIED (5) CAD (coronary artery disease) Code(s): I25.10 - ATHSCL HEART DISEASE OF [place] CORONARY ARTERY W/O ANG PCTRS Assessment/Plan (1) Pneumonia Assessment/Plan: -improved -monitor off of antibiotics -ID following Code(s): J18.9 - PNEUMONIA, UNSPECIFIED ORGANISM Qualifiers: Pneumonia type: due to unspecified organism Laterality: unspecified laterality Lung location: unspecified part of lung Qualified Code(s): J18.9 - Pneumonia, unspecified organism (2) COPD (chronic obstructive pulmonary disease) Assessment/Plan: -continue current regimen -taper steroids, start prednisone tomorrow Code(s): J44.9 - CHRONIC OBSTRUCTIVE PULMONARY DISEASE, UNSPECIFIED Qualifiers : COPD type: COPD with acute exacerbation Qualified Code(s): J44.1 - Chronic obstructive pulmonary disease with (acute) exacerbation (3) HTN (hypertension) Assessment/Plan: -continue altace Code(s): I10 - ESSENTIAL (PRIMARY) HYPERTENSION (4) HLD (hyperlipidemia) Assessment/Plan: -continue statin Code(s): E78.5 - HYPERLIPIDEMIA, UNSPECIFIED (5) CAD (coronary artery disease) Assessment/Plan: -quiescent -continue home regimen Code(s): I25.10 - ATHSCL HEART DISEASE OF [place] CORONARY ARTERY W/O ANG PCTRS (6) Breast mass -CT scan showing miniscule masses, follow up in 6 months -however also with ? R sided breast mass -recommended ultrasound, will order
--- NOTE | 2017-03-15 14:04 | CONSULT ---
Consultation: REQUESTING PROVIDER: CONSULT REQUEST: ID HISTORY OF PRESENT ILLNESS: 86 F with a PMH of esophageal CA (10 years ago) presented to the ED with worsening cough, SOB and headache for 10 days. She brought up yellow sputum with the cough. She also had back pain during inspiration and cough. She was started on PO zithromax which was prescribed by her primary care physician with no improvement. She denies nausea, vomiting, urinary symptoms, abdominal pain, and recent travel. She went [place] and was exposed to a lot of people around the same time the symptoms started. PAST MEDICAL HISTORY: esophageal CA tx with chemo approx 10y ago HTN CAD glaucoma PAST SURGICAL HISTORY: surgery for stomach ulcer hysterectomy hemorrhoidectomy appendectomy Social History: Smoking: quit 20y ago, previous 1ppd smoker Alcohol: pt denies Drugs: pt denies Family History: mother age45, vaginal bleeding complications of "the change" father deased in his 70s, unknown brother brain aneurysm 6 other siblings all , unk ages and causes 1 sister alive with DM Allergies codeine Allergy REVIEW OF SYSTEMS: CONSTITUTIONAL: Absent: fever, chills, diaphoresis, generalized weakness, malaise, loss of appetite, weight change HEENT: Absent: rhinorrhea, nasal congestion, throat pain, throat swelling, difficulty swallowing, mouth swelling, ear pain, eye pain, visual changes CARDIOVASCULAR: Absent: chest pain, syncope, palpitations, irregular heart rate, lightheadedness , peripheral edema RESPIRATORY: Absent: cough, shortness of breath, dyspnea with exertion, orthopnea, wheezing, stridor, hemoptysis GASTROINTESTINAL: Absent: abdominal pain, abdominal distension, nausea, vomiting, diarrhea, constipation, melena, hematochezia GENITOURINARY: Absent: dysuria, frequency, urgency, hesitancy, hematuria, flank pain, genital pain MUSCULOSKELETAL: Absent: myalgia, arthralgia, joint swelling, back pain, neck pain SKIN: Absent: rash, itching, pallor HEMATOLOGIC/IMMUNOLOGIC: Absent: easy bleeding, easy bruising, lymphadenopathy, frequent infections ENDOCRINE: Absent: unexplained weight gain, unexplained weight loss, heat intolerance, cold intolerance NEUROLOGIC: Absent: headache, focal weakness or paresthesias, dizziness, unsteady gait, seizure, mental status changes, bladder or bowel incontinence PSYCHIATRIC: Absent: anxiety, depression, suicidal or homicidal ideation, hallucinations. PHYSICAL EXAMINATION Vital Signs - 24 hr 08/20/17 08/20/17 08/20/17 14:10 17:38 21:00 Temperature 98.0 F 97.7 F Pulse Rate 83 74 Respiratory 13 20 Rate Blood Pressure 111/57 128/56 O2 Sat by Pulse 95 Oximetry (%) 03/14/17 03/15/17 03/15/17 23:00 02:35 06:00 Temperature 98.3 F 97.0 F L 97.5 F L Pulse Rate 79 83 78 Respiratory 19 20 20 Rate Blood Pressure 128/63 157/84 146/82 O2 Sat by Pulse Oximetry (%) 03/15/17 03/15/17 10:30 11:25 Temperature 97.0 F L Pulse Rate 81 68 Respiratory 20 Rate Blood Pressure 189/71 O2 Sat by Pulse 95 Oximetry (%) GENERAL: A/O x 3. NAD HEAD: Normal with no signs of trauma. EYES: sclera anicteric, conjunctiva clear. EARS, NOSE, THROAT: Ears normal, nares patent, oropharynx clear without exudates. Moist mucous membranes. NECK: supple LUNGS: Breath sounds equal, clear to auscultation bilaterally. No wheezes, and no crackles. No accessory muscle use. HEART: Regular rate and rhythm, normal S1 and S2 without murmur, rub or gallop. ABDOMEN: Soft, nontender, not distended, normoactive bowel sounds, no guarding, no rebound, no masses. No hepatomegaly or splenomegaly. EXTREMITIES: No peripheral edema. PSYCHIATRIC: Cooperative. Good eye contact. Appropriate mood and affect. SKIN: Warm, dry, normal turgor, no rashes or lesions noted. Laboratory Results - last 24 hr 03/15/17 03/15/17 06:00 06:00 WBC 12.9 H RBC 4.57 Hgb 12.7 Hct 38.5 MCV 84.3 MCH 27.7 MCHC 32.9 RDW 13.5 Plt Count 303 MPV 9.1 Neutrophils % 82.9 H Lymphocytes % 10.2 D Monocytes % 6.8 D Eosinophils % 0.0 Basophils % 0.1 D Sodium 142 Potassium 4.1 Chloride 102 Carbon Dioxide 33 H Anion Gap 7 L BUN 18 Creatinine 0.7 Creat Clearance w eGFR > 60 Random Glucose 109 H D Calcium 8.8 Phosphorus 2.8 Magnesium 2.4 Total Bilirubin 0.3 D AST 14 L ALT 22 Alkaline Phosphatase 84 Total Protein 6.2 L Albumin 3.1 L Active Medications Generic Name Dose Route Start Last Admin Trade Name Anthonyq PRN Reason Stop Dose Admin Albuterol/Ipratropium 1 amp 03/12/17 00:00 03/15/17 11:15 Duoneb - NEB 1 amp QIDR AGUEDA Administration Atorvastatin Calcium 10 mg 03/11/17 22:00 03/14/17 21:33 Lipitor - PO 10 mg HS AGUEDA Administration Azithromycin 500 mg 03/12/17 10:00 03/15/17 11:49 Zithromax 500mg Ivpb (Pre-Docked) IVPB 500 mg DAILY AGUEDA Administration Heparin Sodium (Porcine) 5,000 unit 03/11/17 22:00 03/15/17 10:31 Heparin - SQ 5,000 unit BID AGUEDA Administration Ceftriaxone Sodium 1 gm/ 50 mls @ 100 mls/hr 03/12/17 10:00 03/15/17 10:31 Dextrose IVPB 100 mls/hr DAILY AGUEDA Administration Isosorbide Mononitrate 30 mg 03/12/17 10:00 03/15/17 10:31 Imdur - PO 30 mg DAILY AGUEDA Administration Latanoprost 1 drop 03/11/17 22:00 03/14/17 21:35 Xalatan 0.005% Eye Drops - OU 1 drop HS AGUEDA Administration Methylprednisolone Sodium Succinate 40 mg 03/15/17 10:00 03/15/17 10:31 Solu-Medrol - IVPB 03/16/17 00:00 40 mg BID AGUEDA Administration Nystatin 500,000 units 03/15/17 12:00 03/15/17 11:49 Nystatin Oral Suspension - PO 500,000 units Q6HPO AGUEDA Administration Pantoprazole Sodium 40 mg 03/12/17 10:00 03/15/17 10:31 Protonix - PO 40 mg DAILY AGUEDA Administration Prednisone 60 mg 03/16/17 10:00 Deltasone - PO DAILY AGUEDA Ramipril 5 mg 03/12/17 10:00 03/15/17 10:31 Altace - PO 5 mg DAILY AGUEDA Administration ASSESSMENT/PLAN: 86 F with a PMH of esophageal CA (10 years ago) presented to the ED and admitted with worsening cough, SOB, chills and headache for 10 days. 1) Leukocytosis - possibly from administration of Solu-medrol -doubtful pneumonia -CT scan revealed no pulmonary infiltrates -hold antibiotics and observe -continue breathing treatments and taper steroids Dispo: We will continue to follow the patient. Thank you for this consultative opportunity. Visit type - Emergency Visit Emergency Visit: Yes ED Registration Date: 03/11/17 Care time: The patient presented to the Emergency Department on the above date and was hospitalized for further evaluation of their emergent condition. - New Patient This patient is new to me today: Yes Date on this admission: 03/15/17 - Critical Care Critical Care patient: No
--- NOTE | 2017-03-15 15:38 | PN ---
Teaching Attending Note Name of Resident: Giovanni Merchant ATTENDING PHYSICIAN STATEMENT I saw and evaluated the patient. I reviewed the resident's note and discussed the case with the resident. I agree with the resident's findings and plan as documented. SUBJECTIVE: OBJECTIVE: ASSESSMENT AND PLAN: Probable steroid-induced leukocytosis No evidence of pneumonia on CT ? hyperactive airways Observe off antibiotics Steroid taper
[2017-03-15] MEDS: ATORVASTATIN CA 10 MG TABLET (FP) PO SCH (21:13)
[2017-03-15] MEDS: LATANOPROST 0.005% OPHTH SOLN 2.5ML BOTTLE OU SCH (21:13)
[2017-03-16] MEDS: NYSTATIN 500,000 UNITS/5 ML SUSPENSION PO SCH ×3 (01:10→12:00)
[2017-03-16] MEDS: ALBUTEROL SO4 2.5/IPRATROPIUM 0.5 INH SOL 3 ML VIAL.NEB. NEB SCH ×3 (06:15→11:15)
[2017-03-16 08:00] LABS: BASOPHIL 0.1 % (0-2.0); MCH 27.4 pg (25.7-33.7); MCHC 32.5 g/dl (32.0-36.0); MEAN CELL VOLUME 84.3 fl (80-96); MEAN PLT VOLUME 8.8 fl (7.5-11.1); NEUTROPHILS 85.7 % (42.8-82.8); PLATELET COUNT 340 K/MM3 (134-434); RDW 13.9 % (11.6-15.6); WHITE BLOOD COUNT 13.4 K/mm3 (4.0-10.0)
[2017-03-16 08:15] VITALS: BP 160/74; TEMP 97.7
[2017-03-16 08:29] LABS: ANION GAP 11 (8-16); CO2 32 mmol/L (21-32); CREATININE 0.7 mg/dL (0.55-1.02); GLUCOSE,RANDOM 157 mg/dL (74-106); MAGNESIUM 2.4 mg/dL (1.8-2.4); PHOSPHOROUS 3.6 mg/dL (2.5-4.9)
[2017-03-16] MEDS ORDERED: PT OWN MED DRAWER 7, Y5N ONE (09:53)
[2017-03-16] MEDS: RAMIPRIL 5 MG CAPSULE (FP) PO SCH (09:56)
[2017-03-16] MEDS: ISOSORBIDE MONONITRATE 30 MG TAB.SR.24H (FP) PO SCH (09:56)
[2017-03-16] MEDS: PANTOPRAZOLE 40 MG TABLET (FP) PO SCH (09:56)
[2017-03-16] MEDS: HEPARIN NA (PORCINE) 5,000 UNITS/ML 1ML VIAL SQ SCH (09:56)
[2017-03-16] MEDS ORDERED: predniSONE 20 MG TABLET (UD) PO SCH (10:00)
--- NOTE | 2017-03-16 11:27 | DS ---
Physical Examination Vital Signs: Vital Signs Temperature 36.5 C 03/16/17 08:14 Pulse Rate 81 03/16/17 08:14 Respiratory Rate 18 03/16/17 08:14 Blood Pressure 160/74 03/16/17 08:14 O2 Sat by Pulse Oximetry (%) 95 03/15/17 21:00 Constitutional: Yes: Well Nourished, No Distress, Calm Cardiovascular: Yes: Regular Rate and Rhythm. No: Gallop, Murmur, Rub Respiratory: Yes: Regular, CTA Bilaterally. No: Rales, Rhonchi, Wheezes Gastrointestinal: Yes: Normal Bowel Sounds, Soft. No: Distention, Tenderness Extremities: Yes: WNL Edema: No Labs: CBC, BMP 03/16/17 06:00 03/16/17 06:00 Discharge Summary Reason For Visit: PNEUMONIA Current Active Problems CAD (coronary artery disease) (Acute) COPD (chronic obstructive pulmonary disease) (Acute) HLD (hyperlipidemia) (Acute) HTN (hypertension) (Acute) Pneumonia (Acute) Hospital Course: (1) Pneumonia Code(s): J18.9 - PNEUMONIA, UNSPECIFIED ORGANISM Qualifiers: Pneumonia type: due to unspecified organism Laterality: unspecified laterality Lung location: unspecified part of lung Qualified Code(s): J18.9 - Pneumonia, unspecified organism (2) COPD (chronic obstructive pulmonary disease) Code(s): J44.9 - CHRONIC OBSTRUCTIVE PULMONARY DISEASE, UNSPECIFIED Qualifiers : COPD type: COPD with acute exacerbation Qualified Code(s): J44.1 - Chronic obstructive pulmonary disease with (acute) exacerbation (3) HTN (hypertension) Code(s): I10 - ESSENTIAL (PRIMARY) HYPERTENSION (4) HLD (hyperlipidemia) Code(s): E78.5 - HYPERLIPIDEMIA, UNSPECIFIED (5) CAD (coronary artery disease) Code(s): I25.10 - ATHSCL HEART DISEASE OF [place] CORONARY ARTERY W/O ANG PCTRS (6) Breast mass Ms Farr is a pleasant 86 year old female who came in with pneumonia causing COPD exacerbation. She was admitted to the hospital and started on antibiotics. She finished without difficulty. She was placed on bronchodilators and solumedrol. The solumedrol was successfully transitioned to prednisone. She improved significantly. She had a CT scan of the chest which showed nodules and recommended [address] follow up. Also questionable breast mass, recommended follow up ultrasound which was done and was negative. Currently patient is feeling better and is safe for discharge home. 35 minutes spent in preparation of this discharge Condition: Good - Instructions Diet, Activity, Other Instructions: resume previous diet and activity Referrals: Barron Luna MD [Primary Care Provider] - Disposition: HOME - Home Medications Comprehensive Discharge Medication List: Ambulatory Orders Isosorbide Mononitrate [Imdur -] 30 mg PO DAILY 03/11/17 Omeprazole 40 mg PO DAILY 03/11/17 Ramipril [Altace] 5 mg PO DAILY 03/11/17 Simvastatin [Zocor -] 20 mg PO HS 03/11/17 Ipratropium/Albuterol Sulfate [Combivent Respimat Inhal [place]] 4 gm IH TID #1 aer.w.[email or web address] 03/16/17 Latanoprost 0.005% Eye Drops [Xalatan 0.005% Eye Drops -] 1 drop OU HS bottle 03/16/17 Nystatin Oral Suspension - [Nystatin Oral Susp 940200 Units/5 ML -] 500,000 units PO Q6HPO #1 bottle 03/16/17 Prednisone [Deltasone -] 5 mg PO ASDIR #78 tab 03/16/17
[2017-03-16 12:56] VITALS: PULSE 68
== END 2017-03-16 14:40 | disposition home or self-care (01) | DRG 190 ==
LOC: JER 15:04 → JERBED 18:16 → J8W 20:44
PROVIDERS: ADMIT Internal Medicine; ATTEND Internal Medicine
DX: J44.0 Chronic obstructive pulmonary disease with (acute) lower respiratory infection (principal); J18.9 Pneumonia, unspecified organism; I25.10 Atherosclerotic heart disease of native coronary artery without angina pectoris; I10 Essential (primary) hypertension; N63 Unspecified lump in breast; Z87.891 Personal history of nicotine dependence; Z85.01 Personal history of malignant neoplasm of esophagus; H40.9 Unspecified glaucoma; K21.9 Gastro-esophageal reflux disease without esophagitis; J44.1 Chronic obstructive pulmonary disease with (acute) exacerbation; K27.9 Peptic ulcer, site unspecified, unspecified as acute or chronic, without hemorrhage or perforation
CPT/HCPCS: 36415; 71010-TC; 71250-TC; 76641-TC-RT; 80048; 80053; 81003; 81015; 82803; 83605; 83735; 83880; 84100; 84484; 85025; 85610; 85730; 86850; 86900; 86901; 87040; 87070; 87086; 87205; 87899; 93005; 93010; 94640; 99283-25; J1644